=== PATIENT | male | born 1985 | race Caucasian/White ===

== ENCOUNTER 2016-11-12 21:54 | Emergency (ER) | payer BC ==
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
[2016-11-12] MEDS: Lidocaine 1% 30 ML SDV INJECT ONE ×2 (23:27→23:33)
[2016-11-12 23:46] LABS: CHLORIDE,CL 104 mmol/L (101-111); SODIUM,NA 140 mmol/L (135-145)
== END 2016-11-13 00:08 | disposition home or self-care (01) ==
LOC: DL.ED 21:54
DX: S01.511A Laceration without foreign body of lip, initial encounter (principal); S09.93XA Unspecified injury of face, initial encounter; F10.129 Alcohol abuse with intoxication, unspecified; R55 Syncope and collapse; R68.84 Jaw pain; Y90.6 Blood alcohol level of 120-199 mg/100 ml; Y04.0XXA Assault by unarmed brawl or fight, initial encounter
CPT/HCPCS: 12011; 36415; 80053; 85027; 99283; G0480

== ENCOUNTER 2016-11-14 13:28 | Emergency (ER) | payer BC ==
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
[2016-11-14 14:44] VITALS: BP 157/95
[2016-11-14] MEDS ORDERED: Cephalexin 500 MG Cap PO ONE (15:28)
[2016-11-14] MEDS ORDERED: Acetaminophen/HYDROcodone 325-10 MG Tab PO ONE (15:28)
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
== END 2016-11-14 15:36 | disposition home or self-care (01) ==
LOC: DL.ED 13:28
DX: S02.2XXB Fracture of nasal bones, initial encounter for open fracture (principal); F17.210 Nicotine dependence, cigarettes, uncomplicated; W22.8XXA Striking against or struck by other objects, initial encounter
CPT/HCPCS: 70486; 99283; A9270

== ENCOUNTER 2016-11-15 13:46 | Emergency (ER) | payer BC ==
[2016-11-15 14:17] VITALS: BP 156/84
== END 2016-11-15 15:57 | disposition left against medical advice (07) ==
LOC: DL.ED 13:46
DX: Z53.21 Procedure and treatment not carried out due to patient leaving prior to being seen by health care provider (principal)

== ENCOUNTER 2016-11-22 00:45 | Emergency (ER) | payer BC ==
--- NOTE | 2016-11-22 01:05 | EDM.PDOC ---
ED HPI GENERAL MEDICAL PROBLEM - General Chief Complaint: ENT Problem Stated Complaint: BLOODY NOSE Time Seen by Provider: 11/22/16 01:01 Source of Information: Reports: Patient History Limitations: Reports: No Limitations - History of Present Illness INITIAL COMMENTS - FREE TEXT/NARRATIVE: broke nose last week, has ENT appt' on Thursday. been having nose bleed on off since then but tonight won't stop. Headache Pain Score (Numeric/FACES): 8 - Related Data Allergies Allergy/AdvReac Type Severity Reaction Status Date / Time No Known Allergies Allergy Verified 11/22/16 00:56 Home Meds: Home Meds Cephalexin [Keflex] 500 mg PO TID 11/22/16 [History] Hydrocodone/Acetaminophen [[place] 10-325 Tablet] 10 mg PO ASDIRECTED PRN [History] Past Medical History - Past Health History Medical/Surgical History: Denies Medical/Surgical History - Infectious Disease History Infectious Disease History: Reports: None - Past Surgical History HEENT Surgical History: Reports: Other (See Below) Other HEENT Surgeries/Procedures: broken nose Respiratory Surgical History: Reports: Other (See Below) Other Respiratory Surgeries/Procedures: "abscess removed from lung" GI Surgical History: Reports: Other (See Below) Other GI Surgeries/Procedures: intestines did not grow right as a Musculoskeletal Surgical History: Reports: Other (See Below) Other Musculoskeletal Surgeries/Procedures:: broken nose Social & Family History - Family History Family Medical History: Noncontributory - Tobacco Use Smoking Status *Q: Current Every Day Smoker Years of Tobacco use: 10 Packs/Tins Daily: 0.5 - Caffeine Use Caffeine Use: Reports: Energy Drinks - Alcohol Use Days Per Week of Alcohol Use: 1 Number of Drinks Per Day: 6 Total Drinks Per Week: 6 - Recreational Drug Use Recreational Drug Use: Yes Drug Use in Last 12 Months: Yes Recreational Drug Type: Reports: Marijuana/Hashish Recreational Drug Use Frequency: Daily ED ROS ENT - Review of Systems Review Of Systems: ROS reveals no pertinent complaints other than HPI. ED EXAM, ENT - Physical Exam Exam: See Below Exam Limited By: No Limitations General Appearance: Alert, WD/WN, Mild Distress, Other (upset) Ears: Hearing Grossly Normal Nose: Other (right hassle bleeding.) Mouth/Throat: Normal Inspection Head: Atraumatic Neck: Non-Tender, Full Range of Motion Respiratory/Chest: No Respiratory Distress Cardiovascular: Regular Rate, Rhythm GI/Abdominal: Soft, Non-Tender Neurological: Alert, Oriented, Normal Cognition, Normal Gait, No Motor/Sensory Deficits Psychiatric: Anxious Skin: Warm, Dry Lymphatic: No Adenopathy Course - Vital Signs Last Recorded V/S: Last Vital Signs Temp 36.2 C 11/22/16 02:48 Pulse 118 H 11/22/16 02:48 Resp 20 11/22/16 02:48 BP 99/66 11/22/16 02:48 Pulse Ox 100 11/22/16 01:58 - Orders/Labs/Meds Orders: Active Orders 24 hr Category Date Time Status Sodium Chloride 0.9% [Normal Saline] 1,000 ml Med 11/22/16 01:45 Active IV .BOLUS Transfuse RBC [Transfuse Red Blood Cells] [COMM] Stat Oth 11/22/16 01:44 Ordered Medication Orders Sodium Chloride (Normal Saline) 1,000 mls @ 500 mls/hr IV .BOLUS ONE Stop: 11/22/16 03:44 Last Admin: 11/22/16 01:55 Dose: 500 mls/hr Labs: Laboratory Tests 11/22/16 11/22/16 11/22/16 Range/Units 01:35 01:35 01:35 WBC 13.6 H (5.0-10.0) 10^3/uL RBC 2.16 L (4.6-6.2) 10^6/uL Hgb 6.8 L* 7.0 L (14.0-18.0) g/dL Hct 20.1 L* 20.7 L* (40.0-54.0) % MCV 95.8 (80-100) fL MCH 32.4 (27.0-34.0) pg MCHC 33.8 (33.0-35.0) g/dL Plt Count 236 (150-450) 10^3/uL Neut % (Auto) 60.0 (42.2-75.2) % Lymph % (Auto) 29.0 (20.5-50.1) % Yancey % (Auto) 9.2 H (2-8) % Eos % (Auto) 1.6 (1.0-3.0) % Baso % (Auto) 0.2 (0.0-1.0) % Add Manual Diff Yes Neutrophils % (Manual) 57 % Lymphocytes % (Manual) 33 % Monocytes % (Manual) 8 % Eosinophils % (Manual) 2 % Nucleated RBCs 1 /100WBC Sodium 137 (135-145) mmol/L Potassium 3.7 (3.6-5.0) mmol/L Chloride 105 (101-111) mmol/L Carbon Dioxide 23.0 (21.0-31.0) mmol/L Anion Gap 12.7 BUN 29 H (7-18) mg/dL Creatinine 1.0 (0.6-1.3) mg/dL Est Cr Clr Drug Dosing TNP Estimated GFR (MDRD) > 60 BUN/Creatinine Ratio 29.00 Glucose 140 H (74-105) mg/dL Calcium 8.1 L (8.4-10.2) mg/dl Total Bilirubin 0.5 (0.2-1.0) mg/dL AST 39 (10-42) IU/L ALT 85 H (10-60) IU/L Alkaline Phosphatase 55 (42-121) IU/L Total Protein 5.4 L (6.7-8.2) g/dl Albumin 3.2 (3.2-5.5) g/dl Globulin 2.2 Albumin/Globulin Ratio 1.45 Blood Type Gel Antibody Screen Crossmatch 11/22/16 Range/Units 01:35 WBC (5.0-10.0) 10^3/uL RBC (4.6-6.2) 10^6/uL Hgb (14.0-18.0) g/dL Hct (40.0-54.0) % MCV (80-100) fL MCH (27.0-34.0) pg MCHC (33.0-35.0) g/dL Plt Count (150-450) 10^3/uL Neut % (Auto) (42.2-75.2) % Lymph % (Auto) (20.5-50.1) % Yancey % (Auto) (2-8) % Eos % (Auto) (1.0-3.0) % Baso % (Auto) (0.0-1.0) % Add Manual Diff Neutrophils % (Manual) % Lymphocytes % (Manual) % Monocytes % (Manual) % Eosinophils % (Manual) % Nucleated RBCs /100WBC Sodium (135-145) mmol/L Potassium (3.6-5.0) mmol/L Chloride (101-111) mmol/L Carbon Dioxide (21.0-31.0) mmol/L Anion Gap BUN (7-18) mg/dL Creatinine (0.6-1.3) mg/dL Est Cr Clr Drug Dosing Estimated GFR (MDRD) BUN/Creatinine Ratio Glucose (74-105) mg/dL Calcium (8.4-10.2) mg/dl Total Bilirubin (0.2-1.0) mg/dL AST (10-42) IU/L ALT (10-60) IU/L Alkaline Phosphatase (42-121) IU/L Total Protein (6.7-8.2) g/dl Albumin (3.2-5.5) g/dl Globulin Albumin/Globulin Ratio Blood Type O POSITIVE Gel Antibody Screen Negative Crossmatch See Detail Meds: Medications Generic Name Dose Route Start Last Admin Trade Name Freq PRN Reason Stop Dose Admin Sodium Chloride 1,000 mls @ 500 mls/hr 11/22/16 01:45 11/22/16 01:55 Normal Saline IV 11/22/16 03:44 500 mls/hr .BOLUS ONE Administration Discontinued Medications Generic Name Dose Route Start Last Admin Trade Name Freq PRN Reason Stop Dose Admin Lorazepam 1 mg 11/22/16 01:11 11/22/16 01:21 Ativan PO 11/22/16 01:12 1 mg ONETIME ONE Administration Lorazepam 2 mg 11/22/16 03:09 11/22/16 03:15 Ativan IVPUSH 11/22/16 03:10 2 mg ONETIME ONE Administration Ondansetron HCl 4 mg 11/22/16 03:05 11/22/16 03:15 Zofran IV 11/22/16 03:06 4 mg ONETIME ONE Administration - Re-Assessments/Exams Free Text/Narrative Re-Assessment/Exam: 11/22/16 01:59 re-exam; Pt vomited large amount clotted blood and felt better. nose repacked Pt states doesn't feel like there is bleeding at present. 11/22/16 02:28 re-exam; still feels good without further bleeding. transfusion discussed with Pt & spouse and Pt will got to floor for it. 11/22/16 03:19 re-exam; bleeding resumed. case discussed with Dr Carballo ENT @ who kindly accepted Pt Departure - Departure Time of Disposition: 03:20 Disposition: DC/Tfer to [facility] 02 Clinical Impression: Epistaxis, Low hemoglobin - Discharge Information Forms: Interfacility Transfer EMTALA - My Orders Last 24 Hours: My Active Orders 11/22/16 01:44 Transfuse RBC [Transfuse Red Blood Cells] [COMM] Stat 11/22/16 01:45 Sodium Chloride 0.9% [Normal Saline] 1,000 ml IV .BOLUS - Assessment/Plan Last 24 Hours: My Active Orders 11/22/16 01:44 Transfuse RBC [Transfuse Red Blood Cells] [COMM] Stat 11/22/16 01:45 Sodium Chloride 0.9% [Normal Saline] 1,000 ml IV .BOLUS
[2016-11-22] MEDS ORDERED: LORazepam 1 MG Tab PO ONE (01:11)
[2016-11-22] MEDS ORDERED: Sodium Chloride 0.9% 1,000 ML IV ONE (01:45)
[2016-11-22 02:02] LABS: CHLORIDE,CL 105 mmol/L (101-111); SODIUM,NA 137 mmol/L (135-145)
[2016-11-22 02:50] VITALS: BP 99/66
[2016-11-22] MEDS ORDERED: Ondansetron 4 MG/2 ML SDV IV ONE (03:05)
[2016-11-22] MEDS ORDERED: LORazepam 2 MG/ML Syringe IVPUSH ONE (03:09)
== END 2016-11-22 03:46 ==
LOC: DL.ED 00:45
DX: R04.0 Epistaxis (principal); D64.9 Anemia, unspecified; F17.210 Nicotine dependence, cigarettes, uncomplicated
CPT/HCPCS: 36415; 36430; 80053; 85014; 85018; 85025; 86850; 86900; 86901; 86920; 86922; 96365; 96375; 99284; A9270; J2060; J2405; J7030; P9016

== ENCOUNTER 2024-11-28 21:27 | Emergency (ER) | payer BC, MEDICAID ==
[2024-11-28] MEDS: Iopamidol 612 MG/ML 100 ML Bottle IVPUSH ONE (22:05)
[2024-11-28] MEDS: Lidocaine 1% 5 ML VIAL INJECT ONE (22:40)
[2024-11-28] MEDS: Diphtheria,Pertussis(Acell),Tetanus Vaccine 0.5 ML Syringe IM ONE (22:55)
[2024-11-28] MEDS: Bacitracin Oint 1 GM U/D Packet TOP ONE (22:55)
== END 2024-11-28 22:58 | disposition home or self-care (01) ==
LOC: DL.ED 21:27
DX: S01.81XA Laceration without foreign body of other part of head, initial encounter (principal); S09.90XA Unspecified injury of head, initial encounter; Z23 Encounter for immunization; Z79.899 Other long term (current) drug therapy; W21.03XA Struck by baseball, initial encounter
CPT/HCPCS: 12011; 70450; 71260; 72125; 73610; 74177; 90471; 90715; 99284; A9270; J2003; Q9967